=== PATIENT | female | born 1950 | race Two or more races ===

== ENCOUNTER 2021-12-04 06:07 | Emergency (ER) | payer OTHER, MEDICAID ==
[~2021-12-04] VITALS: Ht 157.5 cm; Wt 65.0 kg
[2021-12-04] MEDS ORDERED: CALCIUM CHLOR(10%) 100MG/ML 10ML SYRINGE IV ONE (06:08)
[2021-12-04] MEDS ORDERED: SODIUM BICARBONATE 8.4% INJ 50ML SYRINGE IV ONE (06:08)
[2021-12-04] MEDS ORDERED: EPINEPHrine HCL 1 MG/10 ML SYRG IV ONE (06:08)
[2021-12-04 06:50] VITALS: BP 157/120
[2021-12-04] MEDS ORDERED: SODIUM CHLORIDE 0.9% 1,000 ML IV ONE (07:00)
[2021-12-04] MEDS ORDERED: EPINEPHrine HCL 1 MG/10 ML SYRG ONE (07:12)
[2021-12-04] MEDS ORDERED: NOREPINEPHRINE 8 MG/250ML KIT 250 ML IV ONE (08:15)
[2021-12-04 08:30] VITALS: BP 112/57
[2021-12-04] MEDS ORDERED: NOREPINEPHRINE 8 MG/250ML KIT 250 ML IV SCH (08:30)
== END 2021-12-04 09:05 ==
LOC: ER 06:07
DX: I46.9 Cardiac arrest, cause unspecified (principal); I21.9 Acute myocardial infarction, unspecified; R41.82 Altered mental status, unspecified; R06.89 Other abnormalities of breathing; E11.9 Type 2 diabetes mellitus without complications; I10 Essential (primary) hypertension; Z88.6 Allergy status to analgesic agent
CPT/HCPCS: 31500; 36415; 36600; 71045; 82805; 84484; 85007; 85027; 87070; 87205; 92950; 93005; 99291; J0171; J7030; 94002